=== PATIENT | male | born 1980 | race Two or more races ===

== ENCOUNTER 2023-01-12 17:49 | Inpatient (IN) | payer OTHER ==
[2023-01-12 18:44] VITALS: BMI 23.0
[2023-01-12] MEDS ORDERED: PERMETHRIN 5% TOPICAL CREAM 60 GM TUBE TP ONE (20:30)
[2023-01-12] MEDS ORDERED: IBUPROFEN 400 MG TABLET (FP) PO PRN (20:31)
[2023-01-12] MEDS ORDERED: BISMUTH SUBSALICYLATE 524 MG/30 ML PO PRN (20:31)
[2023-01-12] MEDS ORDERED: guaiFENesin 600 MG TABLET.ER (FP) PO PRN (20:31)
[2023-01-12] MEDS ORDERED: MAG HYDROX/AL HYDROX/SIMETH 30 ML UNIT-DOSE CUP PO PRN (20:31)
[2023-01-12] MEDS ORDERED: DICYCLOMINE HCL 10 MG CAPSULE PO PRN (20:31)
[2023-01-12] MEDS ORDERED: NICOTINE POLACRILEX 2 MG GUM BUC PRN (20:31)
[2023-01-12] MEDS ORDERED: ACETAMINOPHEN 325 MG TABLET (FP) PO PRN (20:31)
[2023-01-12] MEDS ORDERED: IBUPROFEN 600 MG TABLET (FP) PO PRN (20:31)
[2023-01-12] MEDS ORDERED: LOPERAMIDE HCL 2 MG CAPSULE PO PRN (20:31)
[2023-01-12] MEDS ORDERED: BENZONATATE 200 MG CAPSULE PO PRN (20:31)
[2023-01-12] MEDS ORDERED: METHOCARBAMOL 500 MG TABLET PO PRN (20:31)
[2023-01-12] MEDS ORDERED: POLYETHYLENE GLYCOL (HEALTHYLAX) 3350 17 GM PACKET PO PRN (20:31)
[2023-01-12] MEDS ORDERED: NICOTINE 7 MG/24 HOURS TOPICAL PATCH TD PRN (20:31)
[2023-01-12] MEDS ORDERED: hydrOXYzine PAMOATE 25 MG CAPSULE (FP) PO PRN (20:31)
[2023-01-12] MEDS ORDERED: MAGNESIUM HYDROX 2400MG/30ML ORAL SUSPENSION 30 ML CUP PO PRN (20:31)
[2023-01-12] MEDS ORDERED: BENZOCAINE/MENTHOL (CHLORASEPTIC ) LOZENGE MM PRN (20:31)
[2023-01-12] MEDS ORDERED: P-EPHED 60MG/TRIPROLIDI 2.5MG TABLET PO PRN (20:31)
[2023-01-12] MEDS ORDERED: chlordiazePOXIDE HCL 25 MG CAPSULE PO PRN (20:35)
[2023-01-12] MEDS ORDERED: chlordiazePOXIDE HCL 25 MG CAPSULE PO ONE (20:35)
[2023-01-12] MEDS ORDERED: chlordiazePOXIDE HCL 25 MG CAPSULE ONE ×2 (21:24→23:25)
[2023-01-12] MEDS ORDERED: ONDANSETRON *ODT* 4 MG TABLET ONE (21:26)
[2023-01-12] MEDS: ONDANSETRON *ODT* 4 MG TABLET SL PRN (21:35)
[2023-01-12] MEDS ORDERED: MELATONIN 5 MG TABLETS PO SCH (22:00)
[2023-01-12] MEDS ORDERED: THIAMINE HCL 100 MG TABLET (FP) PO SCH (22:00)
[2023-01-12] MEDS ORDERED: levETIRAcetam 500 MG TABLET (FP) PO ONE (23:26)
[2023-01-12] MEDS ORDERED: MELATONIN 5 MG TABLETS ONE (23:27)
[2023-01-12] MEDS ORDERED: GABAPENTIN 100 MG CAPSULE ONE (23:28)
[2023-01-12] MEDS: levETIRAcetam 500 MG TABLET (FP) PO SCH (23:30)
[2023-01-12] MEDS: GABAPENTIN 100 MG CAPSULE PO SCH (23:30)
[2023-01-12] MEDS: chlordiazePOXIDE HCL 25 MG CAPSULE PO SCH (23:32)
[2023-01-13] MEDS: GABAPENTIN 100 MG CAPSULE PO SCH ×2 (06:17→13:22)
[2023-01-13] MEDS: chlordiazePOXIDE HCL 25 MG CAPSULE PO SCH ×2 (06:17→10:20)
[2023-01-13] MEDS: ONDANSETRON *ODT* 4 MG TABLET SL PRN (06:29)
[2023-01-13 06:50] VITALS: RESP 18
[2023-01-13 09:20] VITALS: BP 109/66; PULSE 82; TEMP 97.2
[2023-01-13] MEDS ORDERED: FOLIC ACID 1 MG TABLET (FP) PO SCH (10:00)
[2023-01-13] MEDS ORDERED: PRENATAL VITAMINS W/ FOLIC ACID TABLET (FP) PO SCH (10:00)
[2023-01-13] MEDS ORDERED: PANTOPRAZOLE 20 MG TABLET PO SCH (10:00)
[2023-01-13] MEDS: levETIRAcetam 500 MG TABLET (FP) PO SCH (10:20)
[2023-01-14] MEDS ORDERED: chlordiazePOXIDE HCL 25 MG CAPSULE PO SCH (05:00)
[2023-01-15] MEDS ORDERED: chlordiazePOXIDE HCL 10 MG CAPSULE PO PRN
[2023-01-15] MEDS ORDERED: chlordiazePOXIDE HCL 10 MG CAPSULE PO SCH (05:00)
[2023-01-16] MEDS ORDERED: chlordiazePOXIDE HCL 10 MG CAPSULE PO SCH (05:00)
[2023-01-17] MEDS ORDERED: chlordiazePOXIDE HCL 10 MG CAPSULE PO ONE (05:00)
== END 2023-01-13 11:13 | disposition left against medical advice (07) | DRG 894 ==
LOC: YASAS 17:49 → Y3N 23:40
PROVIDERS: ADMIT Allergy & Immunology; ATTEND Surgery
PROC: HZ2ZZZZ Detoxification Services for Substance Abuse Treatment (ICD-10-PCS; principal; 2023-01-12)
DX: F10.230 Alcohol dependence with withdrawal, uncomplicated (principal); F12.20 Cannabis dependence, uncomplicated; G40.909 Epilepsy, unspecified, not intractable, without status epilepticus; I10 Essential (primary) hypertension; E11.9 Type 2 diabetes mellitus without complications; L30.9 Dermatitis, unspecified; R21 Rash and other nonspecific skin eruption; R26.89 Other abnormalities of gait and mobility
CPT/HCPCS: 82962; C9803-CS; Q0162; U0003; U0005